=== PATIENT | female | born 1990 | race Caucasian/White ===

== ENCOUNTER 2017-12-21 05:25 | Inpatient (IN) | payer MEDICAID ==
[2017-12-21] MEDS: ACETAMINOPHEN 500 MG TAB PO (06:42)
[2017-12-21 06:58] LABS: ADD MAN DIFF? NO
[2017-12-21 07:05] LABS: WHITE BLOOD COUNT 9.8 10^3/ul (4.8-10.8)
[2017-12-21 07:05] LABS: BASOPHILS % 0.3 % (0.0-2.0); EOSINOPHILS # 0.2 10^3/ul (0.0-0.5); EOSINOPHILS % 1.6 % (0.0-7.0); HEMATOCRIT 36.3 % (37.0-47.0); HEMOGLOBIN 11.4 g/dl (12.0-16.0); LYMPHOCYTES # 2.5 10^3/ul (0.8-2.9); LYMPHOCYTES % 25.3 % (15.0-51.0); MEAN CORPUSCULAR HEMOGLOBIN 23.9 pg (29.0-33.0); MEAN CORPUSCULAR HGB CONC 31.4 g/dl (32.0-37.0); MEAN CORPUSCULAR VOLUME 76.3 fl (82.0-101.0); MEAN PLATELET VOLUME 10.6 fl (7.4-10.4); MONOCYTE # 0.6 10^3/ul (0.3-0.9); MONOCYTES % 5.6 % (0.0-11.0); NEUTROPHIL # 6.5 10^3/ul (1.6-7.5); PLATELET COUNT 198 10^3/UL (140-415); RED BLOOD COUNT 4.76 10^6/ul (4.20-5.40); RED CELL DISTRIBUTION WIDTH 19.5 % (11.5-14.5)
[2017-12-21 07:17] LABS: ADD UMIC YES; UR ASCORBIC ACID NEGATIVE (NEGATIVE); UR BILIRUBIN (Dip) NEGATIVE (NEGATIVE); UR BLOOD (Dip) 3+ mg/dL (NEGATIVE); UR CLARITY SLIGHTLY CLOUDY (CLEAR); UR COLOR YELLOW (YELLOW); UR GLUCOSE (Dip) NEGATIVE (NEGATIVE); UR KETONES (Dip) NEGATIVE (NEGATIVE); UR LEUKOCYTE ESTERASE (Dip) NEGATIVE Leu/ul (NEGATIVE); UR NITRITE (Dip) NEGATIVE (NEGATIVE); UR RBC > 182 /HPF (0-5); UR SPECIFIC GRAVITY (Dip) 1.013 (1.003-1.030); UR SQUAMOUS EPITHELIAL CELL FEW /HPF (FEW); UR TOTAL PROTEIN (Dip) 1+ mg/dl (NEGATIVE); UR UROBILINOGEN (Dip) NEGATIVE (NEGATIVE); UR WBC 0 /HPF (0-5)
[2017-12-21 07:27] LABS: PROTIME 13.3 Sec (11.9-14.9)
[2017-12-21 07:28] LABS: PARTIAL THROMBOPLASTIN TIME 38.8 Sec (25.0-35.0)
[2017-12-21 07:29] LABS: ALANINE AMINOTRANSFERASE 26 IU/L (13-69); ALBUMIN 4.6 g/dl (3.3-4.9); ALBUMIN/GLOBULIN RATIO 1.31; ALKALINE PHOSPHATASE 90 IU/L (42-121); AMYLASE 68 U/L (11-123); ANION GAP 20 (8-16); ASPARTATE AMINO TRANSFERASE 21 IU/L (15-46); BILIRUBIN,INDIRECT 0.1 mg/dl (0-1.1); BILIRUBIN,TOTAL 0.1 mg/dl (0.2-1.3); BLOOD UREA NITROGEN 9 mg/dl (7-20); CALCIUM 9.2 mg/dl (8.4-10.2); CARBON DIOXIDE 24 mmol/L (21-31); CHLORIDE 105 mmol/L (97-110); GLUCOSE 90 mg/dl (70-220); LIPASE 157 U/L (23-300); POTASSIUM 3.8 mmol/L (3.5-5.1); SODIUM 145 mmol/L (135-144); TOTAL PROTEIN 8.1 g/dl (6.1-8.1)
[2017-12-21] MEDS: SOD CHLORIDE 0.9% 1,000 ML IV (08:44)
[2017-12-21] MEDS ORDERED: HYDROCODONE/APAP (5/325) TAB PO (12:00)
[2017-12-21] MEDS ORDERED: ONDANSETRON 4 MG INJ IV ×2 (12:00→18:30)
[2017-12-21] MEDS: DEXTROSE 5%-LR 1,000 ML IV ×3 (12:29→22:16)
[2017-12-21] MEDS ORDERED: ACETAMINOPHEN 325 MG TAB PO (18:30)
[2017-12-21] MEDS: MISOPROSTOL 200 MCG TAB VAG (23:43)
[2017-12-21] MEDS: ACETAMINOPHEN 325 MG TAB PO (23:50)
[2017-12-22] MEDS: DEXTROSE 5%-LR 1,000 ML IV ×2 (04:00→07:28)
== END 2017-12-22 17:30 | disposition home or self-care (01) | DRG 779 ==
LOC: MS1 17:12 → FTE 05:25 → MS1 18:28
DX: O03.6 Delayed or excessive hemorrhage following complete or unspecified spontaneous abortion (principal); D25.9 Leiomyoma of uterus, unspecified
CPT/HCPCS: 76801; 76817; 80053; 81001; 82150; 83690; 84702; 85025; 85610; 85730; 86900; 86901; 87086; 88305; 96360; 96361; 99285-25

== ENCOUNTER 2017-12-24 10:45 | Emergency (ER) | payer MEDICAID ==
[2017-12-24 12:49] LABS: ADD MAN DIFF? NO
[2017-12-24 12:52] LABS: WHITE BLOOD COUNT 5.7 10^3/ul (4.8-10.8)
[2017-12-24 12:52] LABS: BASOPHILS % 0.4 % (0.0-2.0); EOSINOPHILS # 0.1 10^3/ul (0.0-0.5); EOSINOPHILS % 2.3 % (0.0-7.0); HEMATOCRIT 33.9 % (37.0-47.0); HEMOGLOBIN 10.8 g/dl (12.0-16.0); LYMPHOCYTES % 35.6 % (15.0-51.0); MEAN CORPUSCULAR HEMOGLOBIN 24.8 pg (29.0-33.0); MEAN CORPUSCULAR HGB CONC 31.9 g/dl (32.0-37.0); MEAN CORPUSCULAR VOLUME 77.8 fl (82.0-101.0); MEAN PLATELET VOLUME 10.9 fl (7.4-10.4); MONOCYTE # 0.3 10^3/ul (0.3-0.9); MONOCYTES % 4.7 % (0.0-11.0); NEUTROPHIL # 3.2 10^3/ul (1.6-7.5); NEUTROPHILS % 56.8 % (39.0-77.0); PLATELET COUNT 206 10^3/UL (140-415); RED BLOOD COUNT 4.36 10^6/ul (4.20-5.40); RED CELL DISTRIBUTION WIDTH 19.3 % (11.5-14.5)
== END 2017-12-24 14:30 | disposition home or self-care (01) ==
LOC: FTE 10:45
DX: O03.9 Complete or unspecified spontaneous abortion without complication (principal)
CPT/HCPCS: 36415; 76801; 76817; 84702; 85025; 99284-25